=== PATIENT | female | born 1955 ===

== ENCOUNTER 2025-01-03 07:10 | Day surgery (SDC) | payer OTHER ==
[2024-12-26 13:50] VITALS: BP 114/70
[~2025-01-03] VITALS: Ht 154.9 cm; Wt 53.5 kg
[~2025-01-03 07:10] MED LIST: CLONAZEPAM0.5 MG PO; COZAAR25 MG PO; LEVOTHYROXINE25 MCG PO; NORVASC5 MG PO; ZOLOFT50 MG PO
[2025-01-03] MEDS ORDERED: CEFTRIAXONE SODIUM 2,000 MG VIAL ONE (08:06)
[2025-01-03] MEDS ORDERED: METRONIDAZOLE/SODIUM CHLORIDE 500 MG/100 ML PIGGYBACK IV ONE (08:06)
[2025-01-03] MEDS ORDERED: POVIDONE-IODINE 118 ML BOTT TOP ONE (08:31)
[2025-01-03] MEDS ORDERED: DIBUCAINE 30 GM TUBE ONE (08:31)
[2025-01-03] MEDS ORDERED: BUPIVACAINE HCL/Mpf 0.5% 10ML VIAL ONE (08:31)
[2025-01-03] MEDS ORDERED: HEMOSTATIC MATRIX 1 KIT KIT TOP ONE (08:32)
[2025-01-03] MEDS ORDERED: LIDOCAINE HCL 1%/EPINEPHRINE 20ML VIAL IJ ONE (08:32)
[2025-01-03] MEDS ORDERED: MORPHINE SULFATE 4 MG/ML VIAL IV ONE (13:45)
== END 2025-01-03 14:45 | disposition home or self-care (01) ==
LOC: CIR.AMB 07:10
PROVIDERS: ATTEND Colon & Rectal Surgery
DX: K64.2 Third degree hemorrhoids (principal); K64.4 Residual hemorrhoidal skin tags